=== PATIENT | female | born 1980 | race African-American/Black ===

== ENCOUNTER 2018-07-27 08:57 | Emergency (ER) | payer SELFPAY ==
[~2018-07-27] VITALS: Ht 167.6 cm; Wt 105.2 kg
[~2018-07-27 08:57] MED LIST: PHEN-318 PO
[2018-07-27 09:33] VITALS: BP 165/101
[2018-07-27] MEDS ORDERED: TRAM50TA PO (09:54)
[2018-07-27] MEDS ORDERED: IBUPROFEN 200 MG TABLET. PO ONE (10:00)
--- NOTE | 2018-07-27 10:03 | PHYS DOC ---
Past Medical History Past Medical History: Hypertension, Other Additional Past Medical Histor: INSOMNIA,CHRONIC LOWER BACK PAIN/FX DISC Past Surgical History: No Surgical History Additional Information: SMOKES 1 BLACK & MILD A DAY Alcohol Use: Occasionally Drug Use: Marijuana Adult General Chief Complaint Chief Complaint: LOWER EXT PAIN HPI HPI Patient is a 38 year old -[place] female presents with left calf pain, acute onset with popping sensation while walking down steps. Patient reports left calf pain, tenderness and swelling since incident yesterday. Denies fall, injury or direct trauma to the region. No shortness of breath. No pain, tenderness over Achilles tendon. No medications or therapy's taken prior to ED arrival. No prior history of left calf or leg injury. [] Review of Systems Review of Systems Review symptoms as per history of present illness. All other review symptoms are negative All other systems were reviewed and found to be within normal limits, except as documented in this note. Current Medications Current Medications Current Medications Medications (Trade) Dose Ordered Sig/Gisselle Start Time Stop Time Status Last Admin Dose Admin Ibuprofen (Motrin) 600 mg 1X ONCE 07/27/18 10:00 07/27/18 10:01 07/27/18 09:58 600 MG Allergies Allergies Allergies Coded Allergies Type Severity Reaction Last Updated Verified No Known Drug Allergies 02/18/14 No Physical Exam Physical Exam Constitutional: Well developed, well nourished, no acute distress, non-toxic appearance. [] Extremities: No tenderness, left upper calf swelling, tenderness, no bruising, deformity, or erythema appreciated. Baker test.. [] Neurologic: Alert and oriented X 3, normal motor function, normal sensory function, no focal deficits noted. [] Psychologic: Affect normal, judgement normal, mood normal. [] Current Patient Data Vital Signs Vital Signs Date Time Temp Pulse Resp B/P (MAP) Pulse Ox O2 Delivery O2 Flow Rate FiO2 07/27/18 09:33 98.1 77 16 165/101 (122) 97 Room Air 98.1 EKG EKG [] Radiology/Procedures Radiology/Procedures [] Course & Med Decision Making Course & Med Decision Making Pertinent Labs and Imaging studies reviewed. (See chart for details) [Exam consistent with left calf sprain/gastrocnemius injury. Recommendations are supportive care with PCP follow-up. Of note, patient noted to be hypertensive pain likely contributing to this issue. Patient to follow with her PCP for further evaluation of blood pressure] Evelin Disclaimer Evelin Disclaimer This electronic medical record was generated, in whole or in part, using a voice recognition dictation system. Departure Departure Impression: Primary Impression: Strain of calf muscle Disposition: HOME, SELF-CARE Condition: GOOD Patient Instructions: Muscle Strain, [id number] Additional Instructions: Please wear compression wrap and use crutches. Remain nonweightbearing for the next 3 days. Apply ice 2-3 times daily and take 600 mg of ibuprofen 3 times daily. Take tramadol as needed for additional relief. Follow-up with your PCP early next week for reevaluation. Scripts Tramadol Hcl (TRAMADOL HCL) 50 Mg Tablet 50 MG PO Q6H PRN for PAIN for 3 Days, #15 TAB 0 Refills Prov: CORETTA GARNER DO 07/27/18 CORETTA GARNER DO Jul 27, 2018 10:03
== END 2018-07-27 10:03 | disposition home or self-care (01) ==
LOC: ER 08:57
DX: S86.812A Strain of other muscle(s) and tendon(s) at lower leg level, left leg, initial encounter (principal); I10 Essential (primary) hypertension; F17.210 Nicotine dependence, cigarettes, uncomplicated; X58.XXXA Exposure to other specified factors, initial encounter; Y93.01 Activity, walking, marching and hiking; Y92.89 Other specified places as the place of occurrence of the external cause; Y99.8 Other external cause status
CPT/HCPCS: 99283

== ENCOUNTER 2019-04-21 14:45 | Emergency (ER) | payer SELFPAY ==
[~2019-04-21] VITALS: Ht 167.6 cm; Wt 102.1 kg
[~2019-04-21 14:45] MED LIST changes: +TRAM50TA PO
[2019-04-21 14:48] VITALS: BP 188/117
[2019-04-21] MEDS ORDERED: DEXAMETHASONE 4 MG TABLET PO STA (15:02)
--- NOTE | 2019-04-21 15:07 | PHYS DOC ---
Past Medical History Past Medical History: Hypertension, Other Additional Past Medical Histor: INSOMNIA,CHRONIC LOWER BACK PAIN/FX DISC Past Surgical History: No Surgical History Alcohol Use: Occasionally Drug Use: Marijuana Adult General Chief Complaint Chief Complaint: Congestion HPI HPI Patient is a 38 year old female who presents with left nasal stuffiness has been ongoing for quite a while. She is unsure how long exactly been going on states it has been a long time. The patient has tried saline, allergy medicines, and pseudoephedrine at home. Denies pain but just describes it as stuffiness and makes it difficult for her to breathe out of her nose. Review of Systems Review of Systems Constitutional: Denies fever or chills [] Eyes: Denies change in visual acuity, redness, or eye pain [] HENT: Reports nasal congestion but denies sore throat [] Respiratory: Denies cough or shortness of breath [] Cardiovascular: No additional information not addressed in HPI [] GI: Denies abdominal pain, nausea, vomiting, bloody stools or diarrhea [] : Denies dysuria or hematuria [] Musculoskeletal: Denies back pain or joint pain [] Integument: Denies rash or skin lesions [] Neurologic: Denies headache, focal weakness or sensory changes [] Endocrine: Denies polyuria or polydipsia [] Complete systems were reviewed and found to be within normal limits, except as documented in this note. Allergies Allergies Allergies Coded Allergies Type Severity Reaction Last Updated Verified No Known Drug Allergies 02/18/14 No Physical Exam Physical Exam Constitutional: Well developed, well nourished, no acute distress, non-toxic appearance. [] HENT: Normocephalic, atraumatic, bilateral external ears normal, oropharynx moist, no oral exudates, nose normal. [] Eyes: PERRLA, EOMI, conjunctiva normal, no discharge. [] Neck: Normal range of motion, no tenderness, supple, no stridor. [] Cardiovascular:Heart rate regular rhythm, no murmur [] Lungs & Thorax: Bilateral breath sounds clear to auscultation [] Abdomen: Bowel sounds normal, soft, no tenderness, no masses, no pulsatile masses. [] Skin: Warm, dry, no erythema, no rash. [] Back: No tenderness, no CVA tenderness. [] Extremities: No tenderness, no cyanosis, no clubbing, ROM intact, no edema. [] Neurologic: Alert and oriented X 3, normal motor function, normal sensory function, no focal deficits noted. [] Psychologic: Affect normal, judgement normal, mood normal. [] EKG EKG [] Radiology/Procedures Radiology/Procedures [] Course & Med Decision Making Course & Med Decision Making Pertinent Labs and Imaging studies reviewed. (See chart for details) Has been having congestion. Will give dexamethasone and recommended that she try Flonase over the counter. Dragon Disclaimer Dragon Disclaimer This electronic medical record was generated, in whole or in part, using a voice recognition dictation system. Departure Departure Impression: Primary Impression: Congestion of nasal sinus Disposition: HOME, SELF-CARE Condition: STABLE Referrals: UNKNOWN PCP NAME (PCP) Patient Instructions: Sinusitis Additional Instructions: Thank you for visiting [facility]. We appreciate you trusting us with your care. If any additional problems come up don't hesitate to return to visit us. Please follow up with your primary care provider so they can plan additional care if needed and know about the problem that you had. If symptoms worsen come back to the Emergency Department. Any concerning symptoms that start such as chest pain, shortness of air, weakness or numbness on one side of the body, running high fevers or any other concerning symptoms return to the ER. Please get Flonase over the counter and take per medication label. COREY STAUFFER APRN Apr 21, 2019 15:07
== END 2019-04-21 15:18 | disposition home or self-care (01) ==
LOC: ER 14:45
DX: R09.81 Nasal congestion (principal); I10 Essential (primary) hypertension; G89.29 Other chronic pain
CPT/HCPCS: 99282; J8540

== ENCOUNTER 2019-09-21 08:11 | Emergency (ER) | payer SELFPAY ==
[~2019-09-21] VITALS: Ht 167.6 cm; Wt 99.8 kg
[2019-09-21 08:25] VITALS: BP 191/116
[2019-09-21] MEDS ORDERED: PENI500T PO (09:20)
[2019-09-21] MEDS ORDERED: HYDR-3164 PO (09:20)
[2019-09-21] MEDS ORDERED: NAPR-683 PO (09:20)
--- NOTE | 2019-09-21 09:20 | PHYS DOC ---
Past Medical History Past Medical History: Hypertension, Other Additional Past Medical Histor: INSOMNIA,CHRONIC LOWER BACK PAIN/FX DISC Past Surgical History: No Surgical History Alcohol Use: Occasionally Drug Use: Marijuana Adult General Chief Complaint Chief Complaint: DENTAL PROBLEM HPI HPI Patient is a 39 year old female with history of hypertension and chronic low back pain who presents with complaint of tooth pain. Patient complaining of right upper jaw and to pain for the last 3 days with radiation to right ear as a constant sharp pain rated her pain 8/10. Patient denies fever and chills, dysphagia, shortness of breath and chest pain. Patient is a nonsmoker. Review of Systems Review of Systems Constitutional: Denies fever or chills [] Eyes: Denies change in visual acuity, redness, or eye pain [] HENT: Denies nasal congestion or sore throat, reports dental pain Respiratory: Denies cough or shortness of breath [] Cardiovascular: No additional information not addressed in HPI [] GI: Denies abdominal pain, nausea, vomiting, bloody stools or diarrhea [] : Denies dysuria or hematuria [] Musculoskeletal: Denies back pain or joint pain [] Integument: Denies rash or skin lesions [] Neurologic: Denies headache, focal weakness or sensory changes [] Endocrine: Denies polyuria or polydipsia [] All other systems were reviewed and found to be within normal limits, except as documented in this note. Allergies Allergies Allergies Coded Allergies Type Severity Reaction Last Updated Verified No Known Drug Allergies 02/18/14 No Physical Exam Physical Exam Constitutional: Well developed, well nourished, mild distress, non-toxic appearance. [] HENT: Normocephalic, atraumatic, bilateral external ears normal, oropharynx moist, tooth #1 with tenderness gum in upper jaw .] Eyes: PERRLA, EOMI, conjunctiva normal, no discharge. [] Neck: Normal range of motion, no tenderness, supple, no stridor. [] Cardiovascular:Heart rate regular rhythm, no murmur [] Lungs & Thorax: Bilateral breath sounds clear to auscultation [] Neurologic: Alert and oriented X 3, normal motor function, normal sensory function, no focal deficits noted. [] Psychologic: Affect normal, judgement normal, mood normal. [] Current Patient Data Vital Signs Vital Signs Date Time Temp Pulse Resp B/P (MAP) Pulse Ox O2 Delivery O2 Flow Rate FiO2 09/21/19 08:25 98.9 84 18 191/116 (141) 98 Room Air 98.9 EKG EKG [] Radiology/Procedures Radiology/Procedures [] Course & Med Decision Making Course & Med Decision Making Evaluation of patient in ER showed 39-year-old female patient with abscess of right upper wisdom tooth for 3 days. Patient was advised to follow-up with her dentist. Prescription for antibiotic and pain medication was given. I've spoken with the patient and/or caregivers. I've explained the patient's condition, diagnosis and treatment plan based on information available to me at this time. I've answered the patient's and/or caregivers questions and addressed any concerns. The patient and/or caregivers have a good understanding the patient's diagnosis, condition and treatment plan as can be expected at this point. Vital signs have been stabilized. The patient's condition is stable for discharge from the emergency department. The patient will pursue further outpatient evaluation with her primary care provider or other designated consulting physician as outlined in the discharge instructions. Patient and/or caregivers are agreeable to this plan of care and follow-up instructions have been explained in detail. The patient and/or caregivers have received these instructions in written format and expressed understanding of these discharge instructions. The patient and her caregivers are aware that if any significant change in condition or worsening of symptoms should prompt him to immediately return to this of the closest emergency department. If an emergent department is not readily available I would encourage him to call 911. Dragon Disclaimer Dragon Disclaimer This electronic medical record was generated, in whole or in part, using a voice recognition dictation system. Departure Departure Impression: Primary Impression: Dental abscess Disposition: HOME, SELF-CARE (at 0917) Condition: STABLE Referrals: NO PCP (PCP) Patient Instructions: Dental Abscess, Toothache-Brief Additional Instructions: Drink plenty of liquids Follow-up with your dentist in 2 or 3 days Return to ER if not getting better Scripts Penicillin V Potassium (PENICILLIN V POTASSIUM) 500 Mg Tablet 2 TAB PO Q12HR, #28 TAB Prov: DHARA MOODY MD 09/21/19 Hydrocodone/Apap 5-325 (NORCO 5-325 TABLET) 1 Each Tablet 1 TAB PO PRN Q6HRS PRN for PAIN, #10 TAB 0 Refills Prov: DHARA MOODY MD 09/21/19 Naproxen (NAPROSYN) 500 Mg Tablet 1 TAB PO BID for pain, #20 TAB Prov: DHARA MOODY MD 09/21/19 DHARA MOODY MD Sep 21, 2019 09:20
== END 2019-09-21 09:35 | disposition home or self-care (01) ==
LOC: ER 08:11
DX: K04.7 Periapical abscess without sinus (principal); I10 Essential (primary) hypertension; G89.29 Other chronic pain; M54.5 Low back pain
CPT/HCPCS: 99283